=== PATIENT | male | born 1990 | race African-American/Black ===

== ENCOUNTER 2017-11-23 01:05 | Emergency (ER) | payer SELFPAY ==
[~2017-11-23] VITALS: Ht 172.7 cm; Wt 90.0 kg
[2017-11-23 01:10] VITALS: BP 126/88
[2017-11-23] MEDS ORDERED: HALOPERIDOL LACTATE 5MG/ML VIAL IM ONE (02:00)
[2017-11-23] MEDS ORDERED: LORAZEPAM 2MG/ML CPJ IM ONE (02:00)
== END 2017-11-23 02:41 | disposition left against medical advice (07) ==
LOC: ER 01:05
DX: F15.10 Other stimulant abuse, uncomplicated (principal); R42 Dizziness and giddiness; F20.9 Schizophrenia, unspecified
CPT/HCPCS: 99283; J1630; J2060; Z7610

== ENCOUNTER 2017-11-23 01:38 | Emergency (ER) | payer SELFPAY | END 2017-11-23 02:30 | disposition left against medical advice (07) | LOC: ER 01:38 | DX: F19.10 Other psychoactive substance abuse, uncomplicated (principal); Z53.21 Procedure and treatment not carried out due to patient leaving prior to being seen by health care provider ==

== ENCOUNTER 2017-11-23 06:52 | Emergency (ER) | payer SELFPAY ==
[~2017-11-23] VITALS: Ht 190.5 cm; Wt 91.0 kg
[2017-11-23 07:00] VITALS: BP 118/67
== END 2017-11-23 07:21 | disposition home or self-care (01) ==
LOC: ER 06:52
DX: F15.129 Other stimulant abuse with intoxication, unspecified (principal); M79.605 Pain in left leg; M79.604 Pain in right leg; R03.0 Elevated blood-pressure reading, without diagnosis of hypertension
CPT/HCPCS: 99283

== ENCOUNTER 2017-11-23 08:51 | Emergency (ER) | payer SELFPAY ==
[~2017-11-23] VITALS: Ht 177.8 cm; Wt 77.0 kg
[2017-11-23 09:05] VITALS: BP 129/79
== END 2017-11-23 10:07 | disposition left against medical advice (07) ==
LOC: ER 08:51
DX: M79.604 Pain in right leg (principal); F15.10 Other stimulant abuse, uncomplicated; Z53.21 Procedure and treatment not carried out due to patient leaving prior to being seen by health care provider

== ENCOUNTER 2017-11-23 21:49 | Emergency (ER) | payer SELFPAY ==
[~2017-11-23] VITALS: Ht 172.7 cm; Wt 70.0 kg
[2017-11-23 21:56] VITALS: BP 130/80
== END 2017-11-24 01:10 | disposition left against medical advice (07) ==
LOC: ER 21:49
DX: Z53.21 Procedure and treatment not carried out due to patient leaving prior to being seen by health care provider (principal)

== ENCOUNTER 2020-06-07 04:17 | Emergency (ER) | payer OTHER ==
[~2020-06-07] VITALS: Ht 180.3 cm; Wt 72.0 kg
[2020-06-07 04:36] VITALS: BP 126/86
== END 2020-06-07 04:43 | disposition home or self-care (01) ==
LOC: ER 04:17
DX: F15.10 Other stimulant abuse, uncomplicated (principal); R20.2 Paresthesia of skin; F20.9 Schizophrenia, unspecified; F31.9 Bipolar disorder, unspecified
CPT/HCPCS: 99283

== ENCOUNTER 2021-08-05 21:56 | Emergency (ER) | payer MEDICAID, OTHER ==
[~2021-08-05] VITALS: Ht 180.3 cm; Wt 86.0 kg
[2021-08-05 21:59] VITALS: BP 133/79
== END 2021-08-05 22:41 | disposition left against medical advice (07) ==
LOC: ER 21:56
DX: Z53.21 Procedure and treatment not carried out due to patient leaving prior to being seen by health care provider (principal)
CPT/HCPCS: 99281